=== PATIENT | male | born 1975 | race Caucasian/White ===

== ENCOUNTER 2017-10-21 19:39 | Inpatient (IN) | payer OTHER, MEDICAID ==
[~2017-10-21] VITALS: Ht 182.9 cm; Wt 113.4 kg
[~2017-10-21 19:39] MED LIST: AZITHROMYCIN 2250 MG PO; COMBIVENT INH; DULERA 200 MCG/13 GM INH; JANUMET 50-1,01 EACH PO; NEURONTIN300 MG PO; PRINIVIL20 MG PO; PROAIR RESPICL90 MCG INH
[2017-10-21] MEDS ORDERED: TRICOR (19:51)
[2017-10-21] MEDS ORDERED: TRAZODONE 150150 M1 PO (19:51)
[2017-10-21] MEDS ORDERED: LANTUS100 UNIT/M SUBQ (19:51)
[2017-10-21] MEDS ORDERED: NORCO 5-325 TA1 EACH PO (19:52)
[2017-10-21] MEDS ORDERED: RANITIDINE (19:52)
[2017-10-21] MEDS ORDERED: OMEPRAZOLE (19:52)
[2017-10-21] MEDS ORDERED: REQUIP (19:52)
[2017-10-21 19:53] VITALS: BP 125/79
[2017-10-21 20:12] LABS: ABSOLUTE BASOPHILS 0.1 thou/uL (0.0-0.2); ABSOLUTE EOSINOPHILS 0.1 thou/uL (0.0-0.7); ABSOLUTE LYMPHOCYTES 1.4 thou/uL (0.8-5.3); ABSOLUTE MONOCYTES 0.6 thou/uL (0.0-1.2); ABSOLUTE NEUTROPHILS 8.6 thou/uL (1.6-8.1); EOSINOPHILS 0.7 %; HEMATOCRIT 40.9 % (42.0-52.0); HEMOGLOBIN 13.5 gm/dL (14.0-18.0); LYMPHOCYTES 12.7 %; MCH 30.3 pg (26.0-34.0); MCHC 33.1 g/dL (28.0-37.0); MCV 91.4 fL (80.0-100.0); MPV 9.9 fl. (7.2-11.1); NUCLEATED RBCS 0 /100WBC; PLATELET COUNT* 179 thou/uL (150-400); POLYS 79.6 %; RBC 4.47 mil/uL (4.50-6.00); RDW-CV 13.9 % (10.5-14.5); WBC 10.8 thou/uL (4.0-11.0)
[2017-10-21 20:30] LABS: CALCIUM 9.4 mg/dL (8.5-10.1); CREATININE 1.7 mg/dL (0.6-1.3); POTASSIUM 4.7 mmol/L (3.5-5.1)
[2017-10-21 20:37] LABS: ALBUMIN 3.8 g/dL (3.4-5.0); TOTAL BILIRUBIN 0.3 mg/dL (<0.1-1.0); TOTAL PROTEIN 7.2 g/dL (6.4-8.2); TROPONIN-I LEVEL 0.07 ng/mL (<0.06)
[2017-10-22] VITALS (13 sets, daily range): BP systolic 89–112; BP diastolic 44–64
[2017-10-22 04:44] LABS: APTT 67.9 Seconds (25.0-31.3); INR 1.2; PROTIME 11.9 Seconds (9.20-11.50)
[2017-10-22 09:21] LABS: CALCIUM 8.4 mg/dL (8.5-10.1); CREATININE 1.4 mg/dL (0.6-1.3); MAGNESIUM 1.9 mg/dL (1.8-2.4); POTASSIUM 4.2 mmol/L (3.5-5.1)
--- NOTE | 2017-10-22 10:59 | EKG ---
[place] [address] ELECTROCARDIOGRAM REPORT Name: EVERARDO MARTINEZ Room: [place] [address] ADM IN [facility].#: [id number] Admission: 10/21/17 Attend Phys: Carlos Cabrera MD Discharge: Date of : 73 Report #: [id number] THIS REPORT FOR: //name// [facility] ED Test Date: 2017-10-21 Test Time: 20:59:13 Pat Name: EVERARDO MARTINEZ Department: Room: [facility] Gender: M Education Sales Consultant: : 1975 Requested By: Adan Hsieh Order Number: [id number] MD: Adan Santana Measurements Intervals [place] Rate: 70 P: 39 [place]: 194 QRS: 60 QRSD: 107 T: 30 QT: 383 QTc: 414 Interpretive Statements Sinus rhythm Electronically Signed On 10-22-2017 10:59:08 CDT by Adan Santana [email or web address] <ELECTRONICALLY SIGNED> By: Adan Santana MD, [facility] 10/22/17 1059 205 Adan Santana MD, FACC /EPI
--- NOTE | 2017-10-22 11:09 | EKG ---
[place] [address] ELECTROCARDIOGRAM REPORT Name: EVERARDO MARTINEZ Room: [place] [address] ADM IN [facility].#: [id number] Admission: 10/21/17 Attend Phys: Carlos Cabrera MD Discharge: Date of : 73 Report #: [id number] THIS REPORT FOR: //name// [facility] ED Test Date: 2017-10-22 Test Time: 03:33:58 Pat Name: EVERARDO MARTINEZ Department: Room: [place] [address] Gender: M Loom Overhauler: APARNA : 1975 Requested By: Adan Hsieh Order Number: [id number] MD: Adan Santana Measurements Intervals [place] Rate: 54 P: 21 [place]: 174 QRS: 56 QRSD: 96 T: 53 QT: 447 QTc: 424 Interpretive Statements Sinus bradycardia Electronically Signed On 10-22-2017 11:08:46 CDT by Adan Santana [email or web address] <ELECTRONICALLY SIGNED> By: Adan Santana MD, [facility] 10/22/17 1108 0333 0333 Adan Santana MD, FACC /EPI
[2017-10-22 15:41] LABS: CHOLESTEROL 146 mg/dL (<200); HDL CHOLESTEROL 26 mg/dL (>40); LDL CHOLESTEROL 59 mg/dL (<100); TC:HDL 5.6 Ratio (Not establshd); TRIGLYCERIDE 307 mg/dL (<150); VLDL 61 mg/dL (<40)
[2017-10-22 15:47] LABS: SERUM ASSESSMENT Clear
[2017-10-22] MEDS ORDERED: OMEPRAZOLE20 M2 PO (17:08)
[2017-10-22] MEDS ORDERED: ZANTAC 150MG T150 MG PO (17:09)
[2017-10-22] MEDS ORDERED: REQUIP4 MG PO (17:10)
[2017-10-22] MEDS ORDERED: ZANAFLEX4 MG PO (17:51)
[2017-10-22] MEDS ORDERED: LOPRESSOR50 PO (17:52)
[2017-10-22] MEDS ORDERED: ZYPREXA 5 MG TAB5 M1 PO (17:53)
[2017-10-22] MEDS ORDERED: FENOFIBRATE145 M1 PO (17:56)
[2017-10-22] MEDS ORDERED: LIPITOR 20 MG T20 M1 PO (17:56)
[2017-10-22] MEDS ORDERED: RELPAX40 MG PO (17:58)
[2017-10-22] MEDS ORDERED: MUCINEX600 MG PO (18:03)
[2017-10-22] MEDS ORDERED: HYDROCHLOROTHIA25 M2 PO (18:04)
[2017-10-22] MEDS ORDERED: WELLBUTRIN 100100 MG PO (18:05)
[2017-10-22] MEDS ORDERED: MELOXICAM15 MG PO (18:05)
[2017-10-22] MEDS ORDERED: CLONAZEPAM 1 MG1 M1 PO (18:06)
[2017-10-22] MEDS ORDERED: FLONASE 0.05%50 MCG NASAL (18:06)
[2017-10-22] MEDS ORDERED: VICTOZA0.6 MG/0.1 SUBQ (18:07)
[2017-10-22] MEDS ORDERED: COMBIVENT RESPIM4 GM INH (18:10)
[2017-10-23] VITALS: BP 85/46
[2017-10-23 04:00] VITALS: BP 94/60
[2017-10-23 05:35] LABS: HEMATOCRIT 35.6 % (42.0-52.0); HEMOGLOBIN 11.8 gm/dL (14.0-18.0); MCH 30.5 pg (26.0-34.0); MCHC 33.1 g/dL (28.0-37.0); MCV 92.1 fL (80.0-100.0); RBC 3.86 mil/uL (4.50-6.00); RDW-CV 14.1 % (10.5-14.5); WBC 5.4 thou/uL (4.0-11.0)
[2017-10-23 06:11] LABS: CALCIUM 7.9 mg/dL (8.5-10.1); CREATININE 1.2 mg/dL (0.6-1.3); POTASSIUM 3.7 mmol/L (3.5-5.1)
[2017-10-23 08:00] VITALS: BP 98/58
[2017-10-23 08:56] VITALS: BP 112/64
[2017-10-23] MEDS ORDERED: BRILINTA90 MG PO (10:27)
[2017-10-23] MEDS ORDERED: ASPIRIN81 M2 PO (10:28)
[2017-10-23] MEDS ORDERED: NITROGLYCERIN0.4 MG SUBLING (10:28)
--- NOTE | 2017-10-24 13:00 | CON ---
[facility] [address] [place] [address] CONSULTATION Name: EVERARDO MARTINEZ Room: [address] IN .R.#: [id number] Admission: 10/21/17 Attend Phys: Carlos Cabrera MD Discharge: 10/23/17 Date of : 73 Report #: [id number] THIS REPORT FOR: //name// CC: Carlos Sow DATE OF SERVICE: 10/22/2017 HISTORY OF PRESENT ILLNESS: The patient is a 41-year-old white male diabetic who came to the Emergency Room last night complaining of a sweating spell. The patient has no previous history of heart disease. 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 However, he does not exercise on a regular basis. He states he was doing well until about a week ago, he was at work and had an episode where he became diaphoretic and lightheaded. He sat in front of a fan and felt better. He then notes last night, he was at work about 6:30 in the evening and again felt lightheaded and diaphoretic. He sat in front of a fan and put a cold rag on his head. He finally came to the Emergency Room by private vehicle last night. While in the Emergency Room, he had an episode of chest tightness and was given nitroglycerin. He was found to have an elevated troponin. I was asked to see him for further evaluation and treatment. He has had no previous cardiac evaluation. He does get short of breath when he exerts himself. He has had no palpitations or syncope. PAST MEDICAL HISTORY: He had previous surgery for an arm fracture. He has a history of hypertension, diabetes, hyperlipidemia and sleep apnea. MEDICATIONS: Include TriCor, Lipitor, insulin, Janumet, lisinopril and metoprolol. He uses CPAP. ALLERGIES: He has no known drug allergies. FAMILY HISTORY: Unknown. He is adopted. SOCIAL HISTORY: He is . He and his live in [place]. They have 5 children. Smokes a pack of cigarettes a day. No alcohol abuse. REVIEW OF SYSTEMS: He is a large male being 6 feet tall, 280 pounds. No history of stroke. He does have a chronic cough. He uses an inhaler in the past. No history of peptic ulcer disease, GI bleeding, liver disease, kidney disease, cancer, psychiatric illness, chronic skin condition. PHYSICAL EXAMINATION: GENERAL: Revealed a young white male lying in a stretcher and appeared in no acute distress. VITAL SIGNS: Blood pressure 100/60 and pulse is 50. [place] [address] CONSULTATION Name: EVERARDO MARTINEZ Room: [address]#: [id number] Admission: 10/21/17 Attend Phys: Carlos Cabrera MD Discharge: 10/23/17 Date of : 73 Report #: [id number] HEENT: He is anicteric. Conjunctivae pink. Mucous membranes are moist. NECK: Veins are not distended. No carotid bruits. Neck is supple. CHEST: Clear to auscultation. CARDIOVASCULAR: Regular rate and rhythm. ABDOMEN: Obese, soft and nontender. EXTREMITIES: Had no edema. Dorsalis pedis pulse 3+ bilaterally. SKIN: Moist and warm. NEUROLOGIC: Nonfocal. LYMPH: No adenopathy. MUSCULOSKELETAL: No joint effusion. RADIOLOGICAL DATA: His ECG showed a sinus rhythm. There was no ST or T-wave change noted. His workup so far, he had sodium 137, BUN 25, creatinine 1.7 and glucose is 292. Liver function studies were normal. His troponin on admission was 0.7; however, this morning is 2.02. White blood cell count is 10.8 and hemoglobin 13.5. His chest x-ray last night showed normal heart size and clear lung ortiz. IMPRESSION AND RECOMMENDATIONS: 1. Non-ST elevation myocardial infarction. Recommend cardiac catheterization. 2. Hyperlipidemia. The patient is on TriCor and Lipitor. 3. Diabetes. 4. Hypertension. The patient is on an MARLI inhibitor and beta ilene. 5. Sleep apnea. The patient uses CPAP. 6. Tobacco abuse. 7. Chronic bronchitis. 8. Obesity. <ELECTRONICALLY SIGNED> By: Miquel Polanco MD, FACC 10/24/17 1300 0852 1037Adan Santana MD, FACC /nt
--- NOTE | 2017-10-24 16:59 | EKG ---
[place] [address] ELECTROCARDIOGRAM REPORT Name: EVERARDO MARTINEZ Room: [address] DIS IN M.R.#: [id number] Admission: 10/21/17 Attend Phys: Carlos Cabrera MD Discharge: 10/23/17 Date of : 73 Report #: [id number] THIS REPORT FOR: //name// [facility] Test Date: 2017-10-23 Test Time: 07:51:31 Pat Name: EVERARDOMelanie MARTINEZ Department: Room: [address] Gender: M Glove Tagger: : 1975 Requested By: Adan Santana Order Number: [id number] MD: Miquel Polanco Measurements Intervals [place] Rate: 70 P: 22 LA: 170 QRS: 37 QRSD: 95 T: 12 QT: 423 QTc: 457 Interpretive Statements Sinus rhythm Abnormal R-wave progression, early transition Inferior infarct age indeterminate Compared to ECG 10/22/2017 03:33:58 Inferior Q waves now present Q waves now present Sinus bradycardia no longer present Electronically Signed On 10-24-2017 16:59:17 CDT by Miquel Polanco [email or web address] <ELECTRONICALLY SIGNED> By: Miquel Polanco MD, FACC 10/24/17 1659 0751 0751 Miquel Polanco MD, FAC /EPI
--- NOTE | 2017-10-26 13:02 | CARD ---
[facility] [address] [place] [address] CARDIAC CATH REPORT Name: EVERARDO MARTINEZ Room: [address]#: [id number] Admission: 10/21/17 Attend Phys: Carlos Cabrera MD Discharge: 10/23/17 Date of : 73 Report #: [id number] THIS REPORT FOR: //name// APPROVED REPORT Study performed: 10/22/2017 08:52:43 Patient Details Patient Status: In-Patient Room #: The patient is a 41 year-old male Event Personnel Adan Santana MD, Drivability Technician: Shilpa Thomas RN Art Therapy Certified Supervisor; Claudia Schroeder RN Monitor; DIOGENES Greco(R) Procedures Performed cath pci Indication Non-STEMI , Dizziness and vertigo, Chest pain Risk Factors Arterial Hypertension, Hypercholesterolemia, Diabetes Tobacco History () Admission/Lab Medications/Medications given during procedure Glycoprotein IllbIlla Inhibitors, Heparin Unfract. Procedure Narrative The patient was brought urgently to the Cardiac Catheterization Laboratory and was prepped and draped in a sterile manner. The right wrist was infiltrated with 1% Lidocaine subcutaneous anesthesia. A 6 fr sheath was inserted into the right radial artery. Coronary angiography was performed using coronary diagnostic catheters. The right coronary system was accessed and visualized with a Diagnostic catheter. The left coronary system was accessed and visualized with a Diagnostic catheter. The left ventricle was accessed and visualized with a Diagnostic catheter. Left ventricular/Aortic Valve gradient assessed via catheter pullback. Left ventriculogram was performed in JIMENEZ projection. Closure device was deployed with a 6 Fr vascband. The patient tolerated the procedure well and there were no complications associated with the procedure. There was no hematoma[place] Intra[place] [address] CARDIAC CATH REPORT Name: EVERARDO MARTINEZ Room: [address]#: [id number] Admission: 10/21/17 Attend Phys: Carlos Cabrera MD Discharge: 10/23/17 Date of : 73 Report #: [id number] Fentanyl 25.0 mcg Coronary Angiography The patient's coronary anatomy is right dominant. Diagnostic Cath Left Main 0% stenosis LAD 30% mid stenosis Circumflex 70% distal stenosis Right Coronary 30% proximal, 30% mid, and 100% occluded distally Ramus 0% stenosis Left Ventriculography The left ventricular ejection fraction is estimated to be 40-45%. Left ventricular wall motion abnormalities are present. There is no mitral insufficiency. mild inferior wall hypokinesis Hemodynamics The left ventricular pressure is 82/11 mmHg with a mean of 24 mmHg. The left ventricular end diastolic pressure is 25 mmHg. There was no gradient across the aortic valve upon pullback. Pullback from the left ventricle to the aorta revealed no gradient across the aortic valve. PCI Technique Lesion Anticoagulation was achieved with Heparin. iv aggrastat given Percutaneous coronary intervention was performed on the distal right coronary artery. The lesion stenosis prior to intervention was 100% with VISH 0 flow. A 6 fr jr4 Guide Catheter was used to engage the rca ostium. A [facility] Interventional Guidewire was used to cross the lesion. BALLOON DILATION A Balloon catheter 2.5 x 8 mm was inserted and inflated up to 14atm for 15seconds. Repeat angiography revealed the following post-dilatation results: 50% stenosis. STENT DEPLOYMENT A drug-eluting stent 2.5 x 26 mm was inserted and inflated up to 11atm for 15seconds. Repeat angiography revealed the following post-stent deployment results: 0% stenosis. Final angiography reveals 0 % stenosis with VISH 3 [place] [address] CARDIAC CATH REPORT Name: EVERARDO MARTINEZ Room: [address]#: [id number] Admission: 10/21/17 Attend Phys: Carlos Cabrera MD Discharge: 10/23/17 Date of : 73 Report #: [id number] Conclusion 1. acute occlusion of the distal rca 2. 70% stenosis of the distal circumflex 3. Mild inferior wall hypokinesis with ejection fraction of 45-50% 4. successful placement of a drug eluting stent in the distal rca that extended into the posterior descending branch 5. normal flow into the posterlateral branch of the rca that arose from within the stent Recommendations Smoking Cessation Cardiac Rehabilitation Referral Aggressive Medical Therapy Medications Administered Ticagrelor <ELECTRONICALLY SIGNED> By: Adan Santana MD, FACC 10/26/17 1302 1302 1302Djosé Santana MD, FAC /INF
--- NOTE | 2017-10-27 16:04 | EKG ---
[place] [address] ELECTROCARDIOGRAM REPORT Name: EVERARDO MARTINEZ Room: [address] IN [facility]#: [id number] Admission: 10/21/17 Attend Phys: Carlos Cabrera MD Discharge: 10/23/17 Date of : 73 Report #: [id number] THIS REPORT FOR: //name// [facility] ED Test Date: 2017-10-21 Test Time: 20:59:13 Pat Name: EVERARDO JUAN Department: Room: [facility] Gender: M Ethics Manager: CLAUDIA : 1975 Requested By: Adan Hsieh Order Number: [id number] MD: Adan Santana Measurements Intervals [place] Rate: 70 P: 39 [place]: 194 QRS: 60 QRSD: 107 T: 30 QT: 383 QTc: 414 Interpretive Statements Sinus rhythm Electronically Signed On 10-22-2017 10:59:08 CDT by Adan Santana [email or web address] <ELECTRONICALLY SIGNED> By: Adan Santana MD, FAC 10/27/17 1604 58 58 Adan Santana MD, [facility] /EPI
== END 2017-10-23 11:50 | disposition home or self-care (01) | DRG 247 ==
LOC: M.ERS 19:39 → M.TBA-ER 21:07 → M.2W 10-22 12:39
PROVIDERS: Emergency Medicine Emergency Medical Services; Internal Medicine Cardiovascular Disease; ADMIT Internal Medicine
PROC: 4A023N7 Measurement of Cardiac Sampling and Pressure, Left Heart, Percutaneous Approach (ICD-10-PCS; principal; 2017-10-22)
PROC: 027034Z Dilation of Coronary Artery, One Artery with Drug-eluting Intraluminal Device, Percutaneous Approach (ICD-10-PCS; 2017-10-22)
PROC: B2111ZZ Fluoroscopy of Multiple Coronary Arteries using Low Osmolar Contrast (ICD-10-PCS; 2017-10-22)
PROC: B2151ZZ Fluoroscopy of Left Heart using Low Osmolar Contrast (ICD-10-PCS; 2017-10-22)
DX: I21.4 Non-ST elevation (NSTEMI) myocardial infarction (principal); E66.9 Obesity, unspecified; E11.9 Type 2 diabetes mellitus without complications; I10 Essential (primary) hypertension; E78.00 Pure hypercholesterolemia, unspecified; M19.90 Unspecified osteoarthritis, unspecified site; G25.81 Restless legs syndrome; I25.10 Atherosclerotic heart disease of native coronary artery without angina pectoris; J44.9 Chronic obstructive pulmonary disease, unspecified; F41.9 Anxiety disorder, unspecified; E78.5 Hyperlipidemia, unspecified; F17.210 Nicotine dependence, cigarettes, uncomplicated; G47.33 Obstructive sleep apnea (adult) (pediatric); Z68.33 Body mass index [BMI] 33.0-33.9, adult; Z88.0 Allergy status to penicillin; Z79.899 Other long term (current) drug therapy; Z79.4 Long term (current) use of insulin

== ENCOUNTER 2017-11-07 20:23 | Emergency (ER) | payer OTHER, MEDICAID ==
[~2017-11-07] VITALS: Ht 182.9 cm; Wt 129.3 kg
[~2017-11-07 20:23] MED LIST changes: +ASPIRIN81 M2 PO; +BRILINTA90 MG PO; +CLONAZEPAM 1 MG1 M1 PO; +COMBIVENT RESPIM4 GM INH; +FENOFIBRATE145 M1 PO; +FLONASE 0.05%50 MCG NASAL; +HYDROCHLOROTHIA25 M2 PO; +LANTUS100 UNIT/M SUBQ; +LIPITOR 20 MG T20 M1 PO; +LOPRESSOR50 PO; +MELOXICAM15 MG PO; +MUCINEX600 MG PO; +NITROGLYCERIN0.4 MG SUBLING; +NORCO 5-325 TA1 EACH PO; +OMEPRAZOLE; +OMEPRAZOLE20 M2 PO; +RANITIDINE; +RELPAX40 MG PO; +REQUIP; +REQUIP4 MG PO; +TRAZODONE 150150 M1 PO; +TRICOR; +VICTOZA0.6 MG/0.1 SUBQ; +WELLBUTRIN 100100 MG PO; +ZANAFLEX4 MG PO; +ZANTAC 150MG T150 MG PO; +ZYPREXA 5 MG TAB5 M1 PO
[2017-11-07 21:30] VITALS: BP 117/65
== END 2017-11-07 21:30 | disposition home or self-care (01) ==
LOC: M.ERS 20:23
DX: S80.12XA Contusion of left lower leg, initial encounter (principal); I10 Essential (primary) hypertension; E11.9 Type 2 diabetes mellitus without complications; E78.00 Pure hypercholesterolemia, unspecified; M19.90 Unspecified osteoarthritis, unspecified site; J44.9 Chronic obstructive pulmonary disease, unspecified; I25.2 Old myocardial infarction; F17.210 Nicotine dependence, cigarettes, uncomplicated; Z79.4 Long term (current) use of insulin; Z79.899 Other long term (current) drug therapy; Z88.0 Allergy status to penicillin; X58.XXXA Exposure to other specified factors, initial encounter; Y93.89 Activity, other specified; Y92.89 Other specified places as the place of occurrence of the external cause; Y99.8 Other external cause status

== ENCOUNTER 2017-11-25 14:32 | Inpatient (IN) | payer OTHER, MEDICAID ==
[~2017-11-25] VITALS: Ht 182.9 cm; Wt 127.9 kg
[2017-11-25 14:39] VITALS: BP 134/62
[2017-11-25 15:24] LABS: ABSOLUTE BASOPHILS 0.1 thou/uL (0.0-0.2); ABSOLUTE EOSINOPHILS 0.4 thou/uL (0.0-0.7); ABSOLUTE LYMPHOCYTES 3.1 thou/uL (0.8-5.3); ABSOLUTE MONOCYTES 0.7 thou/uL (0.0-1.2); ABSOLUTE NEUTROPHILS 6.2 thou/uL (1.6-8.1); BASOPHILS 0.7 %; EOSINOPHILS 3.5 %; HEMATOCRIT 41.8 % (42.0-52.0); HEMOGLOBIN 14.4 gm/dL (14.0-18.0); LYMPHOCYTES 29.3 %; MCH 31.1 pg (26.0-34.0); MCHC 34.4 g/dL (28.0-37.0); MCV 90.5 fL (80.0-100.0); MPV 9.9 fl. (7.2-11.1); NUCLEATED RBCS 0 /100WBC; PLATELET COUNT* 231 thou/uL (150-400); POLYS 59.5 %; RBC 4.62 mil/uL (4.50-6.00); RDW-CV 13.3 % (10.5-14.5); WBC 10.4 thou/uL (4.0-11.0)
[2017-11-25 15:28] LABS: ANION GAP 5 mmol/L (7-16); BUN 19 mg/dL (7-18); CALCIUM 9.7 mg/dL (8.5-10.1); CHLORIDE 100 mmol/L (98-107); CO2 30 mmol/L (21-32); CREATININE 1.4 mg/dL (0.6-1.3); GLUCOSE 118 mg/dL (70-99); POTASSIUM 3.6 mmol/L (3.5-5.1); SODIUM 135 mmol/L (136-145)
[2017-11-25 15:36] LABS: APTT 25.9 Seconds (25.0-31.3); INR 1.1; PROTIME 11.3 Seconds (9.20-11.50)
[2017-11-25 15:40] LABS: ALKALINE PHOSPHATASE 67 U/L (46-116); LIPASE 164 U/L (73-393); NT-PRO BRAIN NAT PEPTIDE 444 pg/mL (<300); SGOT 16 U/L (15-37); SGPT 32 U/L (30-65); TOTAL BILIRUBIN 0.5 mg/dL (<0.1-1.0); TOTAL PROTEIN 7.9 g/dL (6.4-8.2); TROPONIN-I LEVEL <0.06 ng/mL (<0.06)
[2017-11-25 18:45] VITALS: BP 120/58
[2017-11-25 19:20] VITALS: BP 117/73
[2017-11-26] VITALS: BP 100/66
[2017-11-26 04:00] VITALS: BP 100/65; BP 104/61
--- NOTE | 2017-11-26 05:09 | NUR ---
PT AAOX4 RESP REG AND UNALBORED SKIN W/D DEINIES CHEST PAIN AND SOB AT THIS TIME. PT HAS SLEPT WELL THIS SHIFT. TELEMETRY PACK ITNACT VSS STABLE. PT WAS ADMITTED FROM ER, MOVED SELF TO HOSPITAL BED. PT IS STEADY ON FEET. TELEMETRY PACK APPLIES, AND PT ORIENTED TO ROOM, CALL SYSTEM, TV AND BED CONTROLS. AND NPO STATUS AT MIDNIGHT. PT VERBALIZED GOOD UNDERSTANDING. NO ACUTE CHANGES DURING SHIFT WILL CONITNUE TO MONITOR
[2017-11-26 08:45] VITALS: BP 133/74
--- NOTE | 2017-11-26 08:45 | NUR ---
ASSUMED PT. CARE AND RECEIVED REPORT AT 0730. PT A/OX4, VSS, MONITORON GUICHO SR WTIH PVC. PT. DENIES CURRENT CP/SOB. ON RA @ 95%. FULL ASSESSMENT COMPLETED, REFER TO CHARTING. PT NPO FOR CV. CALL LIGHT INR EACH, WILL CONTINUE WITH PLAN OF CARE.
--- NOTE | 2017-11-26 11:39 | H ---
[place] [address] HISTORY AND PHYSICAL Name: EVERARDO MARTINEZ Room: [address] IN [facility].#: [id number] Admission: 11/25/17 Attend Phys: Miquel Polanco MD Discharge: Date of : 73 Report #: [id number] THIS REPORT FOR: //name// CC: Adan Santana MD [facility] Marlon Polanco INDICATION: Chest pain and palpitations. HISTORY OF PRESENT ILLNESS: The patient is a very pleasant 41-year-old gentleman, who underwent cardiac catheterization and stenting of the right coronary artery in setting of non-ST elevation myocardial infarction approximately 1 month ago. At that time, the patient was noted to have moderate nonocclusive disease involving the circumflex as well. Cardiac risk factors include hypertension, dyslipidemia, type 2 diabetes mellitus and tobacco use. The patient was seen in the Emergency Room last night with complaints of chest pain that started a few hours prior to admission to the hospital. The pain was waxing and waning. His initial troponin was less than 0.06. Subsequent troponins are less than 0.6. EKG shows sinus rhythm without acute ST or T-wave abnormality. The patient is having; however, frequent unifocal premature ventricular contractions. He has mild palpitations with this. He denies any lightheadedness, dizziness, or syncope. He is without other cardiac complaint. PAST MEDICAL HISTORY: 1. Coronary artery disease, status post recent percutaneous coronary intervention of right coronary artery. 2. Hypertension. 3. Hyperlipidemia. 4. Type 2 diabetes mellitus. 5. Chronic tobacco use history. 6. COPD. 7. Chronic bronchitis. 8. Restless legs syndrome. HOME MEDICATIONS: Gabapentin 300 mg p.o. t.i.d., lisinopril 40 mg p.o. daily, Janumet one tablet b.i.d., trazodone 150 mg at bedtime, Lantus 37 units as directed, omeprazole 20 mg b.i.d., Zantac 150 mg b.i.d., ropinirole 4 mg p.o. at bedtime, Zanaflex 4 mg p.o. t.i.d., metoprolol tartrate 50 mg p.o. daily, Zyprexa 15 mg daily, fenofibrate 145 mg daily, atorvastatin 40 mg at bedtime, Relpax 40 mg as directed, Mucinex 600 mg q.12 hours, hydrochlorothiazide 25 mg daily, Wellbutrin 100 mg b.i.d., meloxicam 50 mg daily, clonazepam 1 mg 2 tablets p.o. t.i.d., Flonase nasal spray 2 times daily, Victoza 1.8 mg subQ daily, Combivent inhaler 1 puff q.i.d. p.r.n., Brilinta 90 mg p.o. b.i.d., aspirin 81 mg daily, Nitrostat p.r.n. [address] [place] [place] [address] HISTORY AND PHYSICAL Name: EVERARDO MARTINEZ Room: [address]#: [id number] Admission: 11/25/17 Attend Phys: Miquel Polanco MD Discharge: Date of : 73 Report #: [id number] ALLERGIES: PENICILLIN. FAMILY HISTORY: Noncontributory. SOCIAL HISTORY: The patient smokes a pack of cigarettes daily. He does not drink alcohol. REVIEW OF SYSTEMS: As per HPI. PHYSICAL EXAMINATION: VITAL SIGNS: Stable. Blood pressure 104/61, pulse 87 with irregularity. GENERAL: This moderately obese, pleasant white male, in no distress. Mood and affect appropriate. HEENT: Extraocular muscles intact. Mucous membranes are moist. NECK: Shows no jugular venous distention. There are no carotid bruits. CHEST: Reveals clear lung ortiz without wheezes or rales. CARDIAC: Reveals an irregular rhythm, but has no gallop or murmur. ABDOMEN: Reveals normal bowel sounds. The abdomen is soft, nontender. EXTREMITIES: Shows no edema. Peripheral pulses 2+ and easily palpable. SKIN: Warm and dry. A 12-lead EKG shows sinus rhythm with no acute ST or T-wave abnormality. There are frequent unifocal premature ventricular contractions noted. LABORATORY DATA: Reviewed. Troponins are unremarkable. IMPRESSION AND RECOMMENDATIONS: 1. Recurrent chest pain in a patient with coronary artery disease with unremarkable enzymes and EKG. We will proceed with noninvasive stress testing. Further cardiac evaluation will be pending the results of that study. 2. Hypertension. Blood pressure adequately controlled. We will be increasing beta ilene to try to suppress PVCs. 3. Hyperlipidemia. Continue atorvastatin and fenofibrate at current doses. 4. Diabetes per primary physician. 5. Tobacco use, cessation recommended. <ELECTRONICALLY SIGNED> By: Miquel Polanco MD, FACC 11/26/[address] [facility] Polanco MD, FACC /nt
--- NOTE | 2017-11-26 11:40 | NUR ---
PLAN FOR STRESS TEST TODAY. PER NUC MED. TESTING AT 1500. PT.IS A 2 DAY STRESS TEST. PT AND FAMILY MADE AWARE.
--- NOTE | 2017-11-26 11:56 | NUR ---
Pt is A&O. Resides at home with his and kids, all are at bedside. Pt states that he is independent, completes most ADLs. Pt uses a cane for mobility. Hx of a cpap, but states that company took it back d/t Pt's noncompliance. No hx of HH or SNF. Scheduled to have a stress test today. Goal is home at de. Following.
[2017-11-26 12:02] VITALS: BP 114/67
--- NOTE | 2017-11-26 17:11 | CARDNUC ---
[place] [address] CARDIAC NUCLEAR IMAGING REPORT Name: EVERARDO MARTINEZ Room: [address] IN [facility]#: [id number] Admission: 11/25/17 Attend Phys: Miquel Polanco, Discharge: Date of : 73 Date of Service: 11/26/17 1711 Report #: [id number] THIS REPORT FOR: //name// APPROVED REPORT Study performed: 11/26/2017 09:43:00 Indication: chest pain, dizzy Patient Location: In-Patient Room #: 210 Stress Tech: Jazzy Del Toro Stress Nurse: Angelika Hutchinson RN Ht: 6 ft 0 in Wt: 282 lbs BSA: 2.47 m2 BMI: 38.24 Medical History Medical History: copd,cad,pci, hyprlipidemia, hypertension, diabetes Medications: aspirin, atorvastatin, fenofibrate, hctz, lisinopril, metoprolol, brilinta Allergies: penicillin Cardiac Risk Factors: hyperlipidemia, hypertension, diabetes, tobacco Previous Cardiac Procedures: pci Exercise History: Indeterminate Meds Held (24 hrs): metoprolol Pharmacologic Stress Pharmacologic stress test was performed by injecting Regadenoson 0.4 mg IV push over 10-15 seconds immediately followed by the intravenous injection of 40.0 mCi of Tc-99m Sestamibi. Time of stress injection: 15:20 Date: 11/26/2017 Administration Route: IV Administration Site: Right AC Heart Rate at time of stress injection: 124 bpm. Gated Stress SPECT was performed 40 minutes after stress injection. The images were gated to evaluate regional wall motion and calculate left ventricular ejection fraction. Prone imaging was performed. Stress Test Details Stress Test: Pharmacologic stress testing performed using 0.4 mg of regadenoson per 5 mL given IV over [address] [place] [address] CARDIAC NUCLEAR IMAGING REPORT Name: EVERARDO MARTINEZ Room: [address]#: [id number] Admission: 11/25/17 Attend Phys: Miquel Polanco, Discharge: Date of : 73 Date of Service: 11/26/17 1711 Report #: [id number] Reason for pharmacologic stress test: physical limitation. HR Max Heart Rate (APMHR): 178 bpm Resting HR: 85 bpm Target HR (85% APMHR): 151 bpm Max HR Achieved: 124 bpm % of APMHR: 69 Recovery HR: 92 bpm BP Resting BP: 134/85 mmHg Recovery BP: 128/81 mmHg ECG Resting ECG: Sinus Rhythm Stress ECG: Sinus Rhythm ST Change: None Arrhythmia: APC's, VPC's Recovery ECG: Sinus Rhythm Recovery ST Change: None Recovery Arrhythmia: APC, APC Clinical Reason for Termination: Completed protocol Exercise duration: 0 min sec Exercise capacity: 1 METs The patient tolerated Lexiscan infusion without significant symptoms. Nurse Comments pt unable to walk on treadmill dt poor condition Stress ECG Conclusion Baseline 12-lead EKG shows sinus rhythm with frequent premature atrial and premature ventricular contractions. Study Quality Study: Good Artifact: No artifact Study Data Post stress, the left ventricular ejection was 58%.. Perfusion Myocardial perfusion images show no defect to suggest [place] [address] CARDIAC NUCLEAR IMAGING REPORT Name: EVERARDO MARTINEZ Room: [address] IN ..#: [id number] Admission: 11/25/17 Attend Phys: Miquel Polanco, Discharge: Date of : 73 Date of Service: 11/26/17 1711 Report #: [id number] Wall Motion Normal left ventricular wall motion. Global LV systolic function appears well-preserved. Ejection fraction Ticlid be 58%. Nuclear Conclusion ECG Findings: negative for ischemia Clinical Findings: negative for ischemia Nuclear Findings: negative for ischemia Exercise Capacity: not assessed Left Ventricular Function: normal Risk Study: low Myocardial perfusion images show no defect to suggest infarct or ischemia. Left ventricular systolic function appears normal on gated studies. This is a low risk study. <Conclusion> Baseline 12-lead EKG shows sinus rhythm with frequent premature atrial and premature ventricular contractions. <ELECTRONICALLY SIGNED> By: Miquel Polanco MD, FACC 11/26/171710 10 10 Miquel Polanco MD, FACC /INF
--- NOTE | 2017-11-26 17:58 | EKG ---
[place] [address] ELECTROCARDIOGRAM REPORT Name: EVERARDO MARTINEZ Room: [address] ADM [place] M.R.#: [id number] Admission: 11/25/17 Attend Phys: Miquel Polanco MD Discharge: Date of : 73 Report #: [id number] THIS REPORT FOR: //name// [facility] ED Test Date: 2017-11-25 Test Time: 14:38:17 Pat Name: EVERARDO MARTINEZ Department: Room: [facility] Gender: Assessment Counselor: [place] WOLF : 1975 Requested By: Felisha Hobson Order Number: [id number] MD: Adan Santana Measurements Intervals [place] Rate: 103 P: 22 [place]: 150 QRS: 34 QRSD: 101 T: -27 QT: 393 QTc: 515 Interpretive Statements Sinus tachycardia Ventricular bigeminy Abnormal R-wave progression, early transition Nonspecific T abnormalities, inferior leads Compared to ECG 10/23/2017 07:51:31 pvc's noted Electronically Signed On 11-26-2017 17:58:03 CDT by Adan Santana [email or web address] <ELECTRONICALLY SIGNED> By: Adan Santana MD, FACC 11/26/17 1758 1438 1438 Adan Santana MD, [facility] /EPI
--- NOTE | 2017-11-26 18:03 | EKG ---
[place] [address] ELECTROCARDIOGRAM REPORT Name: EVERARDO MARTINEZ Room: [address] ADM IN .R.#: [id number] Admission: 11/25/17 Attend Phys: Miquel Polanco MD Discharge: Date of : 73 Report #: [id number] THIS REPORT FOR: //name// [facility] ED Test Date: 2017-11-25 Test Time: 18:09:06 Pat Name: EVERARDO MARTINEZ Department: Room: [facility] Gender: Mail Order Biller: : 1975 Requested By: Felisha Hobson Order Number: [id number] MD: Adan Santana Measurements Intervals [place] Rate: 93 P: 20 LA: 171 QRS: 27 QRSD: 97 T: -23 QT: 401 QTc: 499 Interpretive Statements Sinus rhythm Ventricular bigeminy Borderline repolarization abnormality Baseline wander in lead(s) V1 Electronically Signed On 11-26-2017 18:02:58 CDT by Adan Santana [email or web address] <ELECTRONICALLY SIGNED> By: Adan Santana MD, [facility] 11/26/171801 08 Adan Santana MD, FAC /EPI
[2017-11-26 18:10] VITALS: BP 114/67
--- NOTE | 2017-11-26 19:01 | NUR ---
PT. STRESS TEST NEGATIVE. DR. HERNÁNDEZ UP TO FLOOR TO SEE AND ADJUST MEDS. IV AND MONITOR REMOVED. PT. GIVEN DC INSTRUCTIONS, VERBALIZED UNDERSTANDING. PT. LEFT WITH FAMILY TO RETURN HOME IN PERSONAL VEHICLE, ALL BELONGINGS ACCOUNTED FOR.
--- NOTE | 2017-12-06 09:08 | D ---
[facility] [address] [place] [address] DISCHARGE SUMMARY Name: EVERARDO MARTINEZ Room: [address] [place] .R.#: [id number] Admission: 11/25/17 Attend Phys: Miquel Polanco MD Discharge: 11/26/17 Date of : 73 Report #: [id number] THIS REPORT FOR: //name// CC: Marlon Polanco DATE OF SERVICE: 11/26/2017 DISCHARGE DIAGNOSES: 1. Coronary artery disease. 2. Chest pain. 3. Recent percutaneous coronary intervention. 4. Palpitation. 5. Premature ventricular and atrial complexes on telemetry. 6. Hypertension. 7. Hyperlipidemia. 8. Type 2 diabetes mellitus. 9. Chronic tobacco use. 10. Chronic obstructive pulmonary disease. PROCEDURES DURING THE HOSPITALIZATION: 1. Rule out myocardial infarction by serial enzymes. 2. Telemetry monitoring. 3. Myocardial perfusion imaging stress testing. HOSPITAL COURSE: The patient was admitted to the hospital with complaints of episodic chest discomfort and palpitations. His EKG showed sinus rhythm without ST segment change when he had frequent premature atrial and premature ventricular contractions. He was admitted to the hospital for further evaluation. He did rule out for myocardial infarction by serial enzymes. A myocardial perfusion imaging stress test showed normal perfusion showing no evidence of infarct or ischemia. Left ventricular systolic function was preserved. A CTA of the chest showed no evidence of pulmonary embolus. The patient was being discharged in stable condition. DISCHARGE MEDICATIONS: Aspirin 81 mg daily, atorvastatin 40 mg at bedtime, Wellbutrin 100 mg b.i.d., clonazepam 2 mg t.i.d., Relpax 40 mg as directed, fenofibrate 145 mg daily, Flonase nasal spray daily, gabapentin 300 mg t.i.d., Mucinex 600 mg q.12h., hydrochlorothiazide 25 mg daily, Combivent inhaler q.i.d. p.r.n., Victoza 1.8 mg subcutaneous daily, lisinopril 40 mg daily, meloxicam 15 mg daily, metoprolol tartrate 50 mg b.i.d., Nitrostat p.r.n., Zyprexa 5 mg daily, omeprazole 20 mg b.i.d., ranitidine 150 mg b.i.d., ropinirole 4 mg at bedtime, Janumet one tablet b.i.d., Brilinta 90 mg b.i.d., Zanaflex 4 mg t.i.d., Lantus as directed, trazodone 150 mg at bedtime. DISPOSITION: The patient to follow up with Cardiology on 12/21/2017 [place] [address] DISCHARGE SUMMARY Name: EVERARDO MARTINEZ Room: [address] [place] M.R.#: [id number] Admission: 11/25/17 Attend Phys: Miquel Polanco MD Discharge: 11/26/17 Date of : 73 Report #: [id number] scheduled appointment. The patient is stable for discharge at this time. <ELECTRONICALLY SIGNED> By: Miquel Polanco MD, FACC 12/06/17 [id number] 2004[facility] MD, FACC /nt
== END 2017-11-26 19:24 | disposition home or self-care (01) | DRG 303 ==
LOC: M.ERS 14:32 → M.TBA-ER 18:03 → M.2W 18:03
PROVIDERS: Personal Emergency Response Attendant; ADMIT Internal Medicine Cardiovascular Disease
DX: I25.119 Atherosclerotic heart disease of native coronary artery with unspecified angina pectoris (principal); I49.3 Ventricular premature depolarization; I25.2 Old myocardial infarction; I10 Essential (primary) hypertension; E78.00 Pure hypercholesterolemia, unspecified; E11.9 Type 2 diabetes mellitus without complications; I49.1 Atrial premature depolarization; M19.90 Unspecified osteoarthritis, unspecified site; J44.9 Chronic obstructive pulmonary disease, unspecified; G25.81 Restless legs syndrome; E78.5 Hyperlipidemia, unspecified; F17.210 Nicotine dependence, cigarettes, uncomplicated; Z79.4 Long term (current) use of insulin; Z88.0 Allergy status to penicillin; Z79.899 Other long term (current) drug therapy